=== PATIENT | female | born 1935 | race Caucasian/White ===

== ENCOUNTER 2024-06-03 17:44 | Inpatient (IN) ==
[2024-06-03 19:05] LABS: INR 1.16 (0.85-1.14)
[2024-06-03 19:18] LABS: ABS Lymphocytes 0.2 10^3/uL (1.0-4.8); ABS Monocytes 0.3 10^3/uL (0.0-0.9); ABS Neutrophils 10.8 10^3/uL (1.5-7.6); ABS Nucleated RBC 0.01 10^3/ul; Eosinophil % 0.1 %; Hematocrit 28.9 % (35-45); Hemoglobin 10.2 g/dL (11.5-14.3); Mean Corpuscular Hemoglobin 31.7 pg (27-33); Mean Corpuscular Hgb Conc 35.4 g/dL (31-36); Mean Corpuscular Volume 89.7 fL (80-97); Mean Platelet Volume 9.6 fL (7.5-11.2); Nucleated Red Blood Cells % 0.1 %/100WBC (0.0-0.8); Platelet Count 9 10^3/uL (150-450); Red Blood Count 3.22 10^6/uL (3.63-4.92); Red Cell Distribution Width 17.3 % (12-17); White Blood Count 11.4 10^3/uL (3.8-11.8)
[2024-06-03 20:32] LABS: ALT 12 U/L (7-52); Albumin 3.9 g/dL (3.5-5.7); Albumin/Globulin Ratio 2.8 (1-3); Alkaline Phosphatase 37 U/L (35-149); Anion Gap 7 mmol/L (2-16); Blood Urea Nitrogen 21 mg/dL (6-24); CO2 Carbon Dioxide 29 mmol/L (22-32); Calcium 8.3 mg/dL (8.6-10.3); Chloride 98 mmol/L (101-111); Creatinine, Serum 0.98 mg/dL (0.51-0.95); Globulin 1.4 g/dL (2-4); Glucose 193 mg/dL (70-100); Sodium 134 mmol/L (135-145); Total Bilirubin 0.7 mg/dL (0.2-1.0); Total Protein 5.3 g/dL (6.4-8.9); eGFR CKD-EPI 55.5 (>60)
[2024-06-04] MEDS: Senna TAB 8.6 mg TAB PO SCH (00:51)
[2024-06-04] MEDS ORDERED: Dexamethasone IV 4 MG/ML VIAL 1 ml VIAL IV SLOW PU SCH (02:17)
[2024-06-04] MEDS: Dexamethasone IV 40 MG in NS 0.9% 50 ML 50 ML IVPB SCH (02:41)
[2024-06-04 06:18] LABS: ALT 12 U/L (7-52); AST 12 U/L (13-39); Albumin 3.9 g/dL (3.5-5.7); Albumin/Globulin Ratio 2.4 (1-3); Alkaline Phosphatase 36 U/L (35-149); Anion Gap 7 mmol/L (2-16); Blood Urea Nitrogen 16 mg/dL (6-24); CO2 Carbon Dioxide 29 mmol/L (22-32); Calcium 8.1 mg/dL (8.6-10.3); Chloride 98 mmol/L (101-111); Creatinine, Serum 0.66 mg/dL (0.51-0.95); Globulin 1.6 g/dL (2-4); Glucose 117 mg/dL (70-100); Magnesium 1.5 mg/dL (1.9-2.7); Potassium 3.4 mmol/L (3.5-5.0); Sodium 134 mmol/L (135-145); Total Bilirubin 0.9 mg/dL (0.2-1.0); Total Protein 5.5 g/dL (6.4-8.9); eGFR CKD-EPI 84.3 (>60)
[2024-06-04 06:43] LABS: Folate > 20.00 ng/mL (5.90-24.80)
[2024-06-04 06:44] LABS: Vitamin B12 960 pg/mL (180-914)
[2024-06-04 07:26] LABS: Hemoglobin 10.6 g/dL (11.5-14.3); Mean Corpuscular Hemoglobin 31.1 pg (27-33); Mean Corpuscular Hgb Conc 35.3 g/dL (31-36); Mean Corpuscular Volume 88.2 fL (80-97); Red Cell Distribution Width 17.4 % (12-17); White Blood Count 9.8 10^3/uL (3.8-11.8)
[2024-06-04 07:55] LABS: Mean Platelet Volume 11.1 fL (7.5-11.2); Platelet Count 4 10^3/uL (150-450)
[2024-06-04 07:57] LABS: ABS Lymphocytes 0.3 10^3/uL (1.0-4.8); ABS Monocytes 0.3 10^3/uL (0.0-0.9); ABS Neutrophils 9.2 10^3/uL (1.5-7.6); ABS Nucleated RBC 0.01 10^3/ul; Eosinophil % 0.1 %; Lymphocyte % 2.8 %; Nucleated Red Blood Cells % 0.1 %/100WBC (0.0-0.8)
[2024-06-04] MEDS ORDERED: Lidocaine 2% PF 5 ML VIAL INJ ONE (08:15)
[2024-06-04] MEDS: Potassium Chlor 20 meq TAB.ER PO ONE (08:44)
[2024-06-04] MEDS: Magnesium Sulfate 2 gm BAG 2 GM/50 ML BAG IVPB ONE (08:46)
[2024-06-04] MEDS: Magnesium Sulfate IV 1GM/100ML 1 GM/100 ML BAG IV ONE (10:27)
[2024-06-04] MEDS ORDERED: Immune Globulin IV Order (CPOE ENTRY PROTOCOL) IV SCH (11:00)
[2024-06-04] MEDS: [UNRECOGNIZED DRUG - MIXTURE] IV ONE (17:03)
[2024-06-05] MEDS: [UNRECOGNIZED DRUG - MIXTURE] IV ONE ×2 (00:07→12:41)
[2024-06-05] MEDS: Dexamethasone IV 40 MG in NS 0.9% 50 ML 50 ML IVPB SCH (03:46)
[2024-06-05 07:16] LABS: Calcium 7.3 mg/dL (8.6-10.3); Creatinine, Serum 0.59 mg/dL (0.51-0.95); Magnesium 1.9 mg/dL (1.9-2.7); Potassium 3.4 mmol/L (3.5-5.0); eGFR CKD-EPI 86.6 (>60)
[2024-06-05 07:40] LABS: Hematocrit 28.8 % (35-45); Hemoglobin 10.1 g/dL (11.5-14.3); Mean Corpuscular Hemoglobin 32.3 pg (27-33); Mean Corpuscular Hgb Conc 35.1 g/dL (31-36); Mean Platelet Volume 10.6 fL (7.5-11.2); Platelet Count 6 10^3/uL (150-450); Red Blood Count 3.13 10^6/uL (3.63-4.92); Red Cell Distribution Width 17.1 % (12-17); White Blood Count 12.8 10^3/uL (3.8-11.8)
[2024-06-05] MEDS: Magnesium Sulfate 2 gm BAG 2 GM/50 ML BAG IVPB ONE (08:10)
[2024-06-05] MEDS: KCL 20 MEQ/100 ML IVPREMIX 20 MEQ/100 ML BAG IV SCH (10:01)
[2024-06-05] MEDS ORDERED: Immune Globulin IV Order (CPOE ENTRY PROTOCOL) IV SCH (11:00)
[2024-06-05] MEDS: Potassium Chlor 20 meq TAB.ER PO ONE (12:59)
[2024-06-05] MEDS ORDERED: KCL 20 MEQ/100 ML IVPREMIX 20 MEQ/100 ML BAG IV SCH (15:00)
[2024-06-06 06:14] LABS: Hematocrit 30.1 % (35-45); Hemoglobin 10.4 g/dL (11.5-14.3); Mean Corpuscular Hemoglobin 33.8 pg (27-33); Mean Corpuscular Hgb Conc 34.4 g/dL (31-36); Mean Corpuscular Volume 98.1 fL (80-97); Red Blood Count 3.07 10^6/uL (3.63-4.92); Red Cell Distribution Width 17.5 % (12-17); White Blood Count 10.7 10^3/uL (3.8-11.8)
[2024-06-06 06:32] LABS: Creatinine, Serum 0.64 mg/dL (0.51-0.95); Magnesium 2.1 mg/dL (1.9-2.7); Potassium 3.8 mmol/L (3.5-5.0); eGFR CKD-EPI 84.9 (>60)
[2024-06-06 07:18] LABS: ABS Eosinophils 0.1 10^3/uL (0.0-0.5); ABS Lymphocytes 0.2 10^3/uL (1.0-4.8); ABS Monocytes 0.4 10^3/uL (0.0-0.9); ABS Nucleated RBC 0.03 10^3/ul; Eosinophil % 0.7 %; Lymphocyte % 1.5 %; Mean Platelet Volume 9.3 fL (7.5-11.2); Nucleated Red Blood Cells % 0.3 %/100WBC (0.0-0.8); Platelet Count 20 10^3/uL (150-450)
[2024-06-06 07:19] LABS: RBC Morphology Normal (Normal)
[2024-06-06 10:17] VITALS: BP 149/68
[2024-06-09 14:23] LABS: AMLAF Result Summary Normal
[2024-06-11 10:44] LABS: BM Result Summary Normal
== END 2024-06-06 13:45 | disposition home or self-care (01) | DRG 813 ==
LOC: EDHOLD 17:44 → ED 17:44 → OBSVTOIN 23:55 → SUATTDRO 23:55 → MEDTELE 06-04 03:13
PROVIDERS: ADMIT Student in an Organized Health Care Education/Training Program; ATTEND Internal Medicine